=== PATIENT | male | born 1970 | race Caucasian/White ===

== ENCOUNTER → 2020-05-09 | Day surgery (SDC) | payer OTHER ==
[~2020-05-09] MED LIST: 0.9 % SODIUM CHLORIDE 10 ML VIAL. ONE; DEXAMETHASONE SOD PHOS 10 MG/ML VIAL. ONE; IOHEXOL 300 MG/ML 50 ML VIAL. ONE; LIDOCAINE 1% PF 30 ML VIAL. ONE
[2020-05-09 09:24] VITALS: BP 116/77
--- NOTE | 2020-05-09 10:14 | NUR ---
Pt entered post op area after cervical injection. Vitals stable. He then stated he felt light headed and nauseas. Pt transferred to cart. IV started by Dr. Krishna and fluids started. at 0943 BP 105/72, heart rate 77, respirations 18 and oxygen 99% on 2L. Pt also given water, grape juice, and allison crackers. He stated he was feeling better. Dr. Krishna verbalized to give him 500 cc of LR. At 0950 vitals read: BP 122/82, 99% O2, HR 70, RR 18 and temperature 97.9F. Pt sitting up in bed and moved to room air. Pt ended up receiving 500 cc of Lactated Ringers. At 1000 pt's vitals read: 119/85, HR 70, RR 20, O2 100% on room air and oral temperature of 97.9F. Approved with Dr. Krishna that patient can be discharged but can not drive. [facility]. Pt stated he felt normal at discharge. Vitals stable.
== END | disposition home or self-care (01) ==
LOC: SURG 08:28
PROVIDERS: ATTEND Anesthesiology
DX: M54.12 Radiculopathy, cervical region (principal); I10 Essential (primary) hypertension; K21.9 Gastro-esophageal reflux disease without esophagitis; Z79.899 Other long term (current) drug therapy; Z87.891 Personal history of nicotine dependence
CPT/HCPCS: 62321; 72275; J1100; Q9967